=== PATIENT | female | born 1970 ===

== ENCOUNTER 2017-11-09 16:25 | Emergency (ER) | payer OTHER ==
[2017-11-09 16:41] VITALS: BP 149/77; PULSE 84; RESP 16; TEMP 98; O2SAT 99
--- NOTE | 2017-11-09 17:23 | ED PDOC ---
HPI: General Adult Time Seen by Provider: 11/09/17 16:51 Chief Complaint (Nursing): Dizziness/Lightheaded Chief Complaint (Provider): Tingling and Numbness to Right Arm and Leg History Per: Patient History/Exam Limitations: no limitations Onset/Duration Of Symptoms: Hrs Have you had recent travel within the past 21 days to any of the following countries: [place], [place], [place] or [place]?: No Current Symptoms Are (Timing): Still Present Additional Complaint(s): 47 year old female presents to the ED complaining of numbness and tingling to her right arm and right leg. The patient states that she noticed her symptoms at around 8 am when she woke up. She reports that sh thought she slept wrong and the feeling would resolve but then she began to feel numbness and tingling in her bilateral cheeks and and lips. Patient has no associated motor weakness, blurred vision, headache, fever, chills. Patient reports that she has had the se symptoms intermittenlty over the past few months but she has not been seen by a doctor. PMD: Zaina Bernal Past Medical History Reviewed: Historical Data, Nursing Documentation, Vital Signs Vital Signs: Last Vital Signs Temp 98.0 F 11/09/17 16:37 Pulse 84 11/09/17 16:37 Resp 16 11/09/17 16:37 BP 149/77 11/09/17 16:37 Pulse Ox 99 11/09/17 17:35 - Medical History PMH: Asthma (no admissions) - Surgical History Surgical History: - Family History Family History: States: Unknown Family Hx - Social History Current smoker - smoking cessation education provided: No Ex-Smoker (has not smoked in the last 12 months): No Alcohol: None Drugs: Denies - Home Medications Home Medications: Ambulatory Orders Medication Instructions Recorded Albuterol HFA [Ventolin HFA 90 1 puff IH 03/10/16 mcg/actuation (8 g)] Methylprednisolone [Medrol Dose 4 mg PO DAILY #21 mg 03/10/16 Pack (21 tabs)] predniSONE [predniSONE Tab] 60 mg PO DAILY #9 tab 09/28/16 - Allergies Allergies/Adverse Reactions: Allergies Allergy/AdvReac Type Severity Reaction Status Date / Time No Known Allergies Allergy Verified 11/09/17 16:37 Review of Systems ROS Statement: Except As Marked, All Systems Reviewed And Found Negative Constitutional: Positive for: Other (numbness to bilateral cheeks and lips). Negative for: Fever Cardiovascular: Negative for: Chest Pain Respiratory: Negative for: Shortness of Breath Neurological: Positive for: Numbness (numbness and tinglin to right arm). Negative for: Headache Physical Exam - Reviewed Nursing Documentation Reviewed: Yes Vital Signs Reviewed: Yes - Physical Exam Appears: Positive for: Non-toxic, No Acute Distress Head Exam: Positive for: ATRAUMATIC, NORMAL INSPECTION, NORMOCEPHALIC Skin: Positive for: Normal Color, Warm, Dry. Negative for: Rash Eye Exam: Positive for: Normal appearance, EOMI, PERRL. Negative for: Nystagmus ENT: Positive for: Normal ENT Inspection. Negative for: Nasal Congestion, Pharyngeal Erythema, Tonsillar Swelling Neck: Positive for: Normal, Painless ROM, Supple, Decreased ROM Cardiovascular/Chest: Positive for: Chest Non Tender. Negative for: Gallop, Murmur, Tachycardia Respiratory: Positive for: Normal Breath Sounds. Negative for: Rales, Rhonchi, Wheezing, Respiratory Distress Gastrointestinal/Abdominal: Positive for: Normal Exam, Bowel Sounds, Soft. Negative for: Tenderness, Mass, Guarding, Rebound Back: Positive for: Normal Inspection. Negative for: L CVA Tenderness, R CVA Tenderness Extremity: Positive for: Normal ROM. Negative for: Tenderness, Deformity, Swelling Neurologic/Psych: Positive for: Alert, Oriented, Cerebellar Tests (normal), Gait. Negative for: Motor/Sensory Deficits, Aphasia, Facial Droop - Laboratory Results Result Diagrams: 11/09/17 17:23 11/09/17 17:23 - ECG O2 Sat by Pulse Oximetry: 99 (RA) Pulse Ox Interpretation: Normal Medical Decision Making Medical Decision Makin Initial Impression 47 year old female presenting with neuropathy Initial Plan: * CT Head w/o Contrast * BMP * Upreg * CBC * Erythrocyte Sedimentation Rate * Reevaluation Documented by Sierra Dunham acting as a scribe for Grace Griggs MD. All medical record entries made by the Scribe were at my direction and personally dictated by me. I have reviewed the chart and agree that the record accurately reflects my personal performance of the history, physical exam, medical decision making, and the department course for this patient. I have also personally directed, reviewed, and agree with the discharge instructions and disposition. patient's symptoms are intermittent and recurrent for at least one month. There is no focal motor neurologic findings. Advised her to followup with her PCP and with neurology. Disposition - Clinical Impression Clinical Impression: Neuropathy - Patient ED Disposition Is Patient to be Admitted: No Doctor Will See Patient In The: Office Counseled Patient/Family Regarding: Diagnosis, Need For Followup - Disposition Referrals: Zaina Lamb MD [Family Provider] - [facility] [Outside] Daphnie Sierra MD [Medical Doctor] - Disposition: Routine/Home Disposition Time: 19:20 Condition: STABLE Instructions: Peripheral Neuropathy Forms: [facility] ([place]) Print Language: [place]LAND[place] - POA Present On Arrival: None
[2017-11-09 17:27] LABS: BASO # 0.1 K/uL (0.0-0.2); BASO % 0.6 % (0.0-2.0); EOS # 0.8 K/uL (0.0-0.7); EOS % 8.8 % (0.0-4.0); HEMOGLOBIN 12.9 g/dL (12.0-16.0); LYMPH # 2.2 K/uL (1.0-4.3); LYMPH % 24.1 % (20.0-40.0); MEAN CELL VOLUME 80.9 fl (81.0-99.0); MEAN CORPUSCULAR HEMOGLOBIN 26.9 pg (27.0-31.0); MEAN CORPUSCULAR HGB CONC 33.2 g/dL (33.0-37.0); MEAN PLATELET VOLUME 8.4 fl (7.2-11.7); MONO # 0.6 K/uL (0.0-0.8); MONO % 6.3 % (0.0-10.0); NEUT # 5.4 K/uL (1.8-7.0); NEUT % 60.2 % (50.0-75.0); NRBC % 0.1 % (0.0-0.0); RBC 4.81 Mil/uL (3.80-5.20); RED CELL DISTRIBUTION WIDTH 15.3 % (11.5-14.5)
[2017-11-09 17:44] LABS: BLOOD UREA NITROGEN 12 mg/dl (7-17); CALCIUM 8.5 mg/dL (8.4-10.2); GFR AFRICAN-AMERICAN > 60; GFR NON-AFRICAN AMERICAN > 60
--- NOTE | 2017-11-09 18:21 | CT ---
EXAM: CT Head Without Intravenous Contrast EXAM DATE/TIME: 11/09/2017 5:12 PM CLINICAL HISTORY: 47 years old, female; Signs and symptoms; Numbness / parasthesia; Bilateral; Additional info: Numbness rue, rle, face for one month TECHNIQUE: Axial computed tomography images of the head/brain without intravenous contrast. All CT scans at this facility use one or more dose reduction techniques, viz.: automated exposure control; ma/kV adjustment per patient size (including targeted exams where dose is matched to indication; i.e. head); or iterative reconstruction technique. Coronal and sagittal reformatted images were created and reviewed. COMPARISON: There are no prior studies for comparison. FINDINGS: Brain: Ventricles are normal in size and configuration. There is no midline shift. There are no intra-axial or extra-axial mass lesions or areas of hemorrhage. There are no abnormal fluid collections. De La Fuente-white differentiation is maintained. Ventricles: See above. Bones: Cranial vault is intact. Soft tissues: unremarkable Sinuses: There is no acute sinusitis. Ears and mastoids: Middle ears and mastoids are unremarkable Orbits: Orbital contents are unremarkable. IMPRESSION: No acute intracranial abnormality
== END 2017-11-09 20:00 | disposition home or self-care (01) ==
LOC: H.ER 16:25
DX: G62.9 Polyneuropathy, unspecified (principal)